=== PATIENT | male | born 1960 | race Two or more races ===

== ENCOUNTER 2018-08-01 13:12 | Emergency (ER) | payer OTHER ==
[~2018-08-01] VITALS: Ht 170.2 cm; Wt 91.6 kg
[2018-08-01 13:35] VITALS: Ht 170.2 cm; Wt 91.6 kg
[2018-08-01 15:01] LABS: CALCIUM 8.9 mg/dL (8.5-10.1); CARBON DIOXIDE 25.2 mmol/L (21-32); CHLORIDE SERUM 102 mmol/L (98-107); CREATININE SERUM 0.7 mg/dL (0.7-1.3); GFR1 > 60 mL/min; GLUCOSE SERUM 113 mg/dL (74-106); POTASSIUM SERUM 3.9 mmol/L (3.5-5.1); SODIUM SERUM 136 mmol/L (136-145)
[2018-08-01 15:04] LABS: BASOPHIL % 0.4 % (0-2); PLATELET COUNT 249 x10^3mcL (130-400)
[2018-08-01 15:05] LABS: ALKALINE PHOSPHATASE 129 U/L (46-116); ALT/SGPT 14 U/L (16-63); AST/SGOT 9 U/L (15-37); BILIRUBIN TOTAL 0.4 mg/dL (0.20-1.00); TOTAL PROTEIN, SERUM 7.9 g/dL (6.4-8.2)
[2018-08-01 16:06] VITALS: BP 134/78
== END 2018-08-01 16:07 | disposition home or self-care (01) ==
LOC: ED 13:12
PROVIDERS: Emergency Medicine
DX: I10 Essential (primary) hypertension (principal); E11.9 Type 2 diabetes mellitus without complications
CPT/HCPCS: 36415; Q0092

== ENCOUNTER 2019-01-13 23:14 | Emergency (ER) | payer OTHER ==
[~2019-01-13] VITALS: Ht 167.6 cm; Wt 96.8 kg
[2019-01-13 23:23] VITALS: Ht 167.6 cm; Wt 96.8 kg
[2019-01-14 01:03] VITALS: BP 130/79
== END 2019-01-14 01:03 | disposition home or self-care (01) ==
LOC: ED 23:14
DX: H10.89 Other conjunctivitis (principal); E11.9 Type 2 diabetes mellitus without complications; Z98.42 Cataract extraction status, left eye; Z98.890 Other specified postprocedural states
CPT/HCPCS: 82962